=== PATIENT | male | born 1995 | race Caucasian/White ===

== ENCOUNTER 2017-08-20 16:07 | Emergency (ER) | payer BC ==
[~2017-08-20] VITALS: Ht 170.1 cm; Wt 72.6 kg
[~2017-08-20 16:07] MED LIST: VICODIN 5/500 505 MG PO
[2017-08-20 17:21] VITALS: BP 128/80
[2017-08-20] MEDS ORDERED: POLYTRIM 1000010 M1 OPH (17:36)
== END 2017-08-20 18:00 | disposition home or self-care (01) ==
LOC: ED 16:07
DX: T15.92XA Foreign body on external eye, part unspecified, left eye, initial encounter (principal)

== ENCOUNTER 2017-09-13 22:01 | Emergency (ER) | payer OTHER, BC ==
[~2017-09-13] VITALS: Ht 170.1 cm; Wt 70.3 kg
[~2017-09-13 22:01] MED LIST changes: +POLYTRIM 1000010 M1 OPH
[2017-09-13 22:05] VITALS: BP 148/89
[2017-09-13] MEDS ORDERED: CEPHALEXIN500 M1 PO (23:29)
== END 2017-09-13 23:42 | disposition home or self-care (01) ==
LOC: ED 22:01
DX: S01.82XA Laceration with foreign body of other part of head, initial encounter (principal); F17.200 Nicotine dependence, unspecified, uncomplicated; V29.88XA Motorcycle rider (driver) (passenger) injured in other specified transport accidents, initial encounter; Y93.55 Activity, bike riding; Y92.413 State road as the place of occurrence of the external cause; Y99.9 Unspecified external cause status